=== PATIENT | female | born 1995 | race Caucasian/White ===

== ENCOUNTER → 2024-02-08 10:30 | Outpatient (REF) | payer OTHER, SELFPAY | LOC: WDC 10:30 | PROVIDERS: ATTENDING PHYSICIAN Obstetrics & Gynecology; FAMILY PHYSICIAN Family Medicine | DX: R21 Rash and other nonspecific skin eruption (principal); Z88.9 Allergy status to unspecified drugs, medicaments and biological substances | CPT/HCPCS: 76642 ==

== ENCOUNTER 2024-05-15 09:50 | Observation (INO) | payer OTHER, SELFPAY ==
[2024-05-15 10:11] VITALS: BP 127/74; BMI 34.9
[2024-05-15 10:51] LABS: Hematocrit 35.5 % (37.0-47.0); Hemoglobin 12.7 g/dL (12.0-16.0); Mean Corp Hgb Conc. 35.8 g/dL (33.0-37.0); Mean Corpuscular Hgb 30.5 pg (27.0-31.0); Mean Corpuscular Volume 85.3 fL (81.0-99.0); Mean Platelet Volume 10.2 fL (7.4-10.4); Platelet Count 227 10^3/uL (130-400); Red Blood Cell Count 4.16 10^6/uL (4.20-5.40); Red Cell Dist. Width 13.3 % (11.5-14.5); White Blood Cell Count 8.9 10^3/uL (4.8-10.8)
[2024-05-15 10:56] LABS: Urine Albumin Negative (Neg - Trace); Urine Bilirubin Negative (Negative); Urine Character Clear (Clear); Urine Color Yellow; Urine Glucose Negative (Negative); Urine Ketone Negative (Negative); Urine Leukocyte 2+ (Negative); Urine Nitrite Negative (Negative); Urine Occult Blood Negative (Negative); Urine Specific Gravity 1.015 (<1.030); Urine Urobilinogen Negative (Neg - 1+)
[2024-05-15 11:09] LABS: ALT (SGPT) 14 U/L (0-35); AST (SGOT) 22 U/L (14-36); Albumin 3.9 g/dl (3.5-5.0); Alkaline Phosphatase 199 U/L (38-126); Blood Urea Nitrogen 7 mg/dl (7-17); Calcium 9.1 mg/dl (8.4-10.2); Carbon Dioxide 17 mmol/L (22-30); Chloride 104 mmol/L (98-107); Estimated Creatinine Clearance > 125 ml/min; Glucose 83 mg/dl (70-99); Potassium 4.3 mmol/L (3.5-5.1); Sodium 133 mmol/L (135-145); Total Bilirubin 0.6 mg/dl (0.2-1.3); Total Protein 6.6 g/dl (6.3-8.2); eGFR > 60.00
[2024-05-15 11:43] LABS: Urine Bacteria Moderate (Negative); Urine Red Blood Cell 0-2 /HPF (0-2); Urine Squamous Cell >30 /LPF (Few); Urine Urothelial Cell 0-2 /LPF (FEW)
[2024-05-15 12:14] LABS: Protein/creatinine Ratio 0.1; Urine Protein 6 mg/dl
== END 2024-05-15 14:25 | disposition home or self-care (01) ==
LOC: LDRP 09:50
PROVIDERS: ADMITTING PHYSICIAN Obstetrics & Gynecology
DX: O26.893 Other specified pregnancy related conditions, third trimester (principal); H53.8 Other visual disturbances; Z3A.37 37 weeks gestation of pregnancy; R03.0 Elevated blood-pressure reading, without diagnosis of hypertension
CPT/HCPCS: 80053; 81003; 81015; 82570; 84156; 85027; 86850; 86900; 86901

== ENCOUNTER 2024-06-03 19:30 | Inpatient (IN) | payer OTHER, SELFPAY ==
[2024-06-03 19:49] VITALS: BP 124/76; BMI 35.8
[2024-06-03] MEDS: CYTOTEC 50 MICROGRAM VAG (20:20)
[2024-06-03 20:23] LABS: % Basophils 0.2 % (0-2); % Eosinophils 0.9 % (0-6); % Immature Granulocytes 0.7 % (0-0.5); % Lymphocytes 22.9 % (20.5-51.1); % Monocytes 6.3 % (1.7-9.3); Absolute Eosinophils 0.1 10^3/uL (0-0.7); Absolute Immature Granulocytes 0.1 10^3/uL (0-0.05); Absolute Monocytes 0.6 10^3/uL (0.1-0.6); Absolute Neutrophils 6.1 10^3/uL (1.4-6.5); Hematocrit 34.6 % (37.0-47.0); Hemoglobin 12.1 g/dL (12.0-16.0); Mean Corpuscular Hgb 30.5 pg (27.0-31.0); Mean Corpuscular Volume 87.2 fL (81.0-99.0); Mean Platelet Volume 10.2 fL (7.4-10.4); Nucleated Red Blood Cells % 0 %; Platelet Count 195 10^3/uL (130-400); Red Blood Cell Count 3.97 10^6/uL (4.20-5.40); Red Cell Dist. Width 13.4 % (11.5-14.5); White Blood Cell Count 8.9 10^3/uL (4.8-10.8)
[2024-06-04] MEDS: CYTOTEC PO ×4 (00:56→19:45)
[2024-06-04] MEDS: CYTOTEC 50 MICROGRAM PO ×2 (05:00→09:38)
[2024-06-04 10:15] LABS: ALT (SGPT) 14 U/L (0-35); AST (SGOT) 20 U/L (14-36); Albumin 3.6 g/dl (3.5-5.0); Alkaline Phosphatase 206 U/L (38-126); Blood Urea Nitrogen 9 mg/dl (7-17); Carbon Dioxide 19 mmol/L (22-30); Chloride 105 mmol/L (98-107); Estimated Creatinine Clearance > 125 ml/min; Glucose 100 mg/dl (70-99); Sodium 134 mmol/L (135-145); Total Bilirubin 0.6 mg/dl (0.2-1.3); Total Protein 6.3 g/dl (6.3-8.2); eGFR > 60.00
[2024-06-04] MEDS: PITOCIN 30 UNITS/NSS 500 ML IV (19:46)
[2024-06-04] MEDS: FENTANYL/BUPIVACAINE 100 EPIDURAL (23:38)
[2024-06-04] MEDS: SUBLIMAZE 100 MCG EPIDURAL (23:38)
[2024-06-05] MEDS: FENTANYL/BUPIVACAINE 100 EPIDURAL (08:26)
[2024-06-05] MEDS: LR 1000 IV (09:32)
[2024-06-05] MEDS: TYLENOL 1000 MG PO (17:02)
[2024-06-05] MEDS: BICITRA 30 ML PO (17:02)
[2024-06-05] MEDS: ANCEF 10 IV (17:02)
[2024-06-05] MEDS: ZITHROMAX INFUSION 250 IV (17:06)
--- NOTE | 2024-06-05 18:32 | HPS.HSE ---
Family Physician
-
Family Physician: Eloy Moreno
Chief Complaint
-
induction of labor
History of Present Illness
HPI: Patient is a 28yo with an LUIS of 3/5 presented to Labor and Delivery for induction of labor for suspected macrosomia. She had no complaints.
complications:
- IUI
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
labs: nml nipt, male, afp neg, A+, Ab neg, Rubella immune, RPR NR, gc/chlam/gbs neg, Pap nml, HIV neg, HBsAg neg, hep cab neg,ur cx neg. nml 1hgct
PMHx/Surghx: anal fissue
Meds: PNV
NKDA
Socialhx: denies tobacco, etoh, or illicit drug use
Famhx: non-contributory
OBHx:
Medical History
Past Medical History
Past Medical History: Reports Other
Additional Past Medical History:
anal fissure
Past Surgical History: Reports None
Social History
Tobacco: Non-smoker
Alcohol: None
Drug: None
Family History
Family History: Not pertinent
Allergies / Home Medications
Allergies reflects when Allergies were last updated in [facility].
Home Medications with original date entered in [facility]
Allergy/Medication List:
NKDA
Meds: PNV
Review of Systems
-
A 12 point ROS was completed and negative except as noted: Yes
Physical Exam
Vital Signs
Vital Signs
Temp Pulse Resp BP
98.3 F 93 16 124/76
06/03/24 19:49 06/03/24 19:49 06/03/24 19:49 06/03/24 19:49
Physical Exam
General: Well Developed and Well Nourished
HEENT: NormoCephalic
Respiratory: Non Labored Respirations
Cardiac: Regular Rhythm
GI: Other (gravid)
Skin: Warm and Dry
Neuro: Awake and Alert
Psych: Calm
Laboratory Results
-
06/03/24 20:11
06/04/24 09:46
Laboratory Results
Total Bilirubin 0.6 mg/dl (0.2-1.3) 06/04/24 09:46
AST 20 U/L (14-36) 06/04/24 09:46
ALT 14 U/L (0-35) 06/04/24 09:46
Alkaline Phosphatase 206 U/L (38-126) H 06/04/24 09:46
Impression/Plan
-
IMPRESSION:
Patient is a 28yo with an LUIS 06/04 presented for IOL for suspected macrosomia
PLAN:
- Patient was admitted and given Cytotec 50mcg PV. She made it to complete and then pushed for almost 3hrs with minimal descent of the head, decision was made to proceed with primary section for arrest of descent. Risks, benefits, and
alternatives discussed including bleeding, infection, damage to surrounding structures and need for future operations.
- Ancef 2g and azithromycin 500mg IV given for antibiotic prophylaxis. Anesthesia and NICU were notified
[2024-06-05] MEDS: PRENATAL PLUS PO (18:41)
--- NOTE | 2024-06-05 19:27 | OR.RPT ---
Operative Report
Operative Report
Date of procedure: 06/05/24
Preop diagnosis: IUP @40.1, arrest of descent, suspected macrosomia, meconium stained amniotic fluid, gestational HTN
Postop diagnosis: same
Procedure: Primary low transverse section
Surgeon: Reema
Anesthesia: Epidural, Aamir
QBL: 630mL
Findings: Viable male infant born at 1732, Apgars 8/9. Nuchalx1, reduced. Normal appearing uterus, bilateral fallopian tubes and ovaries. Uterus was boggy, Hemabate and TXAx1 were given with improvement. Serosa inferior to the hysterotomy was raw
appearing, Surgicel was placed.
Complications: none
Hollins catheter draining clear urine before and after the procedure
Indication: Patient is a 28yo @40.1 who presented to Labor and Delivery on 06/03 for induction of labor for suspected macrosomia. Cervical exam was closed at the start of the induction. She was given Cytotec for 3 doses. She then spontaneously
ruptured for clear fluid. She was started on Pitocin and made it to complete. She did a few practice pushes and did not move the head and was not feeling pressure so she labored down for about 45 minutes. She then started pushing. After almost
3 hours of pushing with good effort, there was minimal descent of the head. section for arrest of descent was discussed and patient agreed to proceed. Risks, benefits, and alternatives discussed prior to proceeding and consents were
signed.
Procedure: Patient was taken to the operating room where epidural anesthesia was bolused and found to be adequate. 2g of Ancef and 500g of Azithromycin were given for antibiotic prophylaxis. The abdomen was prepped with ChloraPrep. The patient was
draped in the normal sterile fashion. She was placed in the dorsal supine position with a left lateral tilt. A Pfannenstiel incision was made with a 10 blade and carried down to the fascia with a scalpel. Hemostasis achieved with Bovie. The fascia
was incised and dissected laterally with Mckeon scissors. The superior aspect of the fascia was grasped with Loretta clamps. The underlying rectus fascia was sharply dissected with Mckeon scissors. In a similar fashion the inferior aspect of the fascia
was elevated with Loretta clamps and the rectus muscle was dissected off with Mckeon scissors. The rectus muscles were down the midline to the level of the pubic symphysis with manual dissection. The peritoneum was bluntly entered and
extended using manual traction and Bovie cautery.
Huber retractor and bladder blade were placed revealing good visualization of the bladder. The vesicouterine peritoneum was identified. A thin lower uterine segment was noted. The lower uterine segment was incised with a scalpel. Meconium
stained amniotic fluid noted at entry into the cavity. The uterine incision was extended bluntly with lateral and upward traction.
The fetus was in cephalic presentation. The head was elevated out of the pelvis with special attention paid to avoid using the uterine incision as a fulcrum. Gentle fundal pressure was applied one the head was brought to the incision. The head
delivered through the hysterotomy. A loose nuchal x1 was reduced and the rest of the delivered without difficulty. Delayed cord clamping was performed. The was handed off to the rn critical care. IV oxytocin was started to facilitate
uterine contractions. The placenta was manually extracted. The uterus was exteriorized. Allis clamps were placed at the apices of the hysterotomy. The inside of the uterus was wiped with a lap sponge to assure complete removal of placental
membranes. Fundal massage was performed and uterus was boggy. Methergine and TXA were given with improvement in tone. The uterine incision was closed with 0 Vicryl in a running locked fashion. A horizontal imbricating stitch was done on the
hysterotomy with 0 Vicryl. There was oozing from inferior to the hysterotomy and Bovie cautery was used to achieve hemostasis. The area was raw appearing and Surgicel was placed over it. The hysterotomy was inspected and noted to be hemostatic. The
uterus was placed back in the abdomen. Blood clots and fluid were wiped out of the abdomen and pelvis with moist laparotomy sponges. The hysterotomy was examined again and noted to be hemostatic.
The rectus muscles were inspected and noted to be hemostatic. The fascial layer was closed in a running continuous fashion using 0 Vicryl. The subcutaneous tissue was copiously irrigated and any small bleeding vessels were cauterized with Bovie
cautery. The subcutaneous tissue was reapproximated in a running continuous fashion with 2-0 Plain. The skin was closed with 4-0 Vicryl in a subcuticular fashion and covered with skin glue. The patient tolerated the procedure well. All sponge and
instrument counts were correct times two. The patient was taken to the recovery room in stable condition.
[2024-06-06 04:37] LABS: Hematocrit 34.5 % (37.0-47.0); Hemoglobin 11.9 g/dL (12.0-16.0); Mean Corp Hgb Conc. 34.5 g/dL (33.0-37.0); Mean Corpuscular Hgb 30.5 pg (27.0-31.0); Mean Corpuscular Volume 88.5 fL (81.0-99.0); Mean Platelet Volume 10.1 fL (7.4-10.4); Platelet Count 198 10^3/uL (130-400); Red Cell Dist. Width 13.4 % (11.5-14.5)
[2024-06-06] MEDS: TORADOL 15 MG IV ×3 (05:58→12:45)
--- NOTE | 2024-06-06 08:28 | W.PN.ANS.POP ---
Anesthesia Post Operative
- Anesthesia Post Op Note
Vital Signs Stable-See Nursing Note: Yes
Airway Patent: Yes
Adequate Pain Control: Yes
Change in Mental Status: No
Current Postoperative Nausea & Vomiting: No
Anesthesia Complications: No
General Anesthetic Recall: No
Unplanned Admission: No
Post Op Hydration Adequate: Yes
[2024-06-06] MEDS: PRENATAL PLUS 1 TABLET PO (12:45)
[2024-06-06 17:47] LABS: Syphilis/T. pallidum Ab Reflex Negative (Negative)
[2024-06-06] MEDS: TORADOL IV (18:18)
[2024-06-06] MEDS: MOTRIN 600 MG PO (19:58)
[2024-06-06] MEDS: TYLENOL 650 MG PO (19:59)
[2024-06-06] MEDS: SENOKOT-S 1 TABLET PO (19:59)
[2024-06-07] MEDS: TYLENOL 650 MG PO ×4 (04:03→22:04)
[2024-06-07] MEDS: MOTRIN 600 MG PO ×4 (04:04→22:04)
[2024-06-07] MEDS: PRENATAL PLUS 1 TABLET PO (08:25)
[2024-06-07] MEDS: SENOKOT-S 1 TABLET PO (10:04)
[2024-06-08] MEDS: TYLENOL 650 MG PO (05:38)
[2024-06-08] MEDS: MOTRIN 600 MG PO (05:38)
[2024-06-08] MEDS: SENOKOT-S 1 TABLET PO (08:52)
[2024-06-08] MEDS: PRENATAL PLUS 1 TABLET PO (08:52)
--- NOTE | 2024-06-08 09:46 | W.DS.TRANS ---
DC Summary - Design Leader
-
Discharge Instructions:
Discharge Diagnosis/Procedures Section
Diet No restrictions
Instructions:
Stand-Alone Forms: LDRP Delivery
Changes to Home Medications: No
Discharge Medications:
DC Medications w/original date entered in [facility]
Vitamin 1 tab PO DAILY 05/15/24
acetaminophen 325 mg tablet 650 mg (2 x 325 mg) PO Q4HPRN PRN mild pain #0 tabs 06/08/24
ibuprofen 600 mg tablet 600 mg PO Q6HPRN PRN cramps #45 tabs 06/08/24
sennosides 8.6 mg-docusate sodium 50 mg tablet 1 tab PO DAILYPRN PRN constipation #0 tabs 06/08/24
Home Medication Changes
Pending Results: No
== END 2024-06-08 10:50 | disposition home or self-care (01) | DRG 788 ==
LOC: LDRP 19:30
PROVIDERS: Obstetrics & Gynecology; Student in an Organized Health Care Education/Training Program; ADMITTING PHYSICIAN Obstetrics & Gynecology; FAMILY PHYSICIAN Family Medicine
PROC: 3E0P7VZ Introduction of Hormone into Female Reproductive, Via Natural or Artificial Opening (ICD-10-PCS; 2024-06-03)
PROC: 3E033VJ Introduction of Other Hormone into Peripheral Vein, Percutaneous Approach (ICD-10-PCS; 2024-06-04)
PROC: 10D00Z1 Extraction of Products of Conception, Low, Open Approach (ICD-10-PCS; 2024-06-05)
DX: O36.63X0 Maternal care for excessive fetal growth, third trimester, not applicable or unspecified (principal); O13.4 Gestational [pregnancy-induced] hypertension without significant proteinuria, complicating childbirth; O76 Abnormality in fetal heart rate and rhythm complicating labor and delivery; O62.1 Secondary uterine inertia; O77.0 Labor and delivery complicated by meconium in amniotic fluid; O69.81X0 Labor and delivery complicated by cord around neck, without compression, not applicable or unspecified; Z3A.39 39 weeks gestation of pregnancy; Z37.0 Single live birth
CPT/HCPCS: 36415; 80053; 85025; 85027; 86780; 86850; 86900; 86901